=== PATIENT | female | born 1945 | race Caucasian/White ===

== ENCOUNTER 2021-09-20 16:20 | Inpatient (IN) ==
[2021-09-20 21:56] LABS: Basophils % 0.4 %; Eosinophils # 0.1 K/mcL (0.0-0.6); Eosinophils % 1.8 %; Hematocrit 36.3 % (35.3-44.9); Immature Granulocytes % 0.4 % (0-4); Lymphocytes # 0.8 K/mcL (0.6-4.6); Lymphocytes % 15.4 %; Mean Corpuscular HGB Conc 30.3 g/dL (31.6-35.5); Mean Corpuscular Hemoglobin 25.4 pg (28.0-33.3); Mean Corpuscular Volume 83.8 fL (83.0-100.0); Mean Platelet Volume 9.7 fL (9.4-12.4); Monocytes # 0.5 K/mcL (0.0-1.3); Monocytes % 10.3 %; Neutrophils # 3.7 K/mcL (1.6-8.9); Platelet Count 115 K/mcL (140-400); Red Blood Count 4.33 M/mcL (3.82-4.97); Segmented Neutrophils % 71.7 %; White Blood Count 5.1 K/mcL (4.3-11.1)
[2021-09-20 22:04] LABS: INR 1.1; Prothrombin Time 12.1 Seconds (9.4-12.1)
[2021-09-20 22:15] LABS: Alanine Aminotransferase < 3 Units/L (7-52); Albumin 3.4 g/dL (3.5-5.7); Albumin/Globulin Ratio 1.4 (1.1-2.2); Alkaline Phosphatase 94 Units/L (34-104); Aspartate Amino Transferase 10 Units/L (13-39); BUN/Creatinine Ratio 37 (6-26); Bilirubin,Total 0.5 mg/dL (0.3-1.0); Blood Urea Nitrogen 22 mg/dL (8-23); Calcium 8.4 mg/dL (8.6-10.3); Carbon Dioxide 25 mEq/L (23-29); Chloride 109 mEq/L (98-107); Globulin 2.4 g/dL (2.4-3.5); Glucose 95 mg/dL (70-105); Osmolality,Calculated 293 (280-300); Potassium 3.8 mEq/L (3.5-5.1); Sodium 140 mEq/L (136-145); Total Protein 5.8 g/dL (6.4-8.9); eGFR For African Americans > 60 (> 60); eGFR For Non-African Americans > 60 (> 60)
[2021-09-20] MEDS ORDERED: Perflutren Lipid Microsphere 1.3 ML in 0.9 % Sodium Chloride 8.7 ML IVP PRN (22:18)
[2021-09-20] MEDS ORDERED: tiZANidine 4 MG TABLET PO PRN (22:19)
[2021-09-20] MEDS ORDERED: *HR* LORazepam 2 MG/ML VIAL IVP PRN ×2 (22:20)
[2021-09-20] MEDS ORDERED: Ondansetron 4 MG/2 ML VIAL IVP PRN (22:24)
[2021-09-20] MEDS ORDERED: Naloxone 0.4 MG/ML INJ IVP PRN (22:24)
[2021-09-20] MEDS ORDERED: Acetaminophen 325 MG TABLET PO PRN (22:24)
[2021-09-20 22:50] LABS: Amylase 32 Units/L (29-103)
[2021-09-20 23:17] LABS: Lipase 10 Units/L (11-82)
[2021-09-21] MEDS ORDERED: clonazePAM 1 MG TABLET PO PRN (00:53)
[2021-09-21 07:02] LABS: Hematocrit 37.8 % (35.3-44.9); Hemoglobin 11.2 g/dL (11.5-15.4); Mean Corpuscular HGB Conc 29.6 g/dL (31.6-35.5); Mean Corpuscular Hemoglobin 24.7 pg (28.0-33.3); Mean Corpuscular Volume 83.3 fL (83.0-100.0); Mean Platelet Volume 10.3 fL (9.4-12.4); Platelet Count 119 K/mcL (140-400); Red Blood Count 4.54 M/mcL (3.82-4.97); Red Cell Distribution Width 16.9 % (11.5-14.5); White Blood Count 4.8 K/mcL (4.3-11.1)
[2021-09-21 07:27] LABS: BUN/Creatinine Ratio 35 (6-26); Blood Urea Nitrogen 19 mg/dL (8-23); Calcium 8.6 mg/dL (8.6-10.3); Carbon Dioxide 26 mEq/L (23-29); Chloride 108 mEq/L (98-107); Chol/HDL Ratio 2.2 (0-4.9); Cholesterol 94 mg/dL (< 200); Glucose 89 mg/dL (70-105); HDL Cholesterol 42 mg/dL (40-59); LDL Cholesterol,Calculated 28 mg/dL (< 100); Magnesium 1.8 mg/dL (1.6-2.6); Osmolality,Calculated 292 (280-300); Potassium 3.9 mEq/L (3.5-5.1); Sodium 140 mEq/L (136-145); Triglycerides 120 mg/dL (< 150); eGFR For African Americans > 60 (> 60); eGFR For Non-African Americans > 60 (> 60)
[2021-09-21 07:28] LABS: % Iron Saturation 8 % (15-50); Iron 39 mcg/dL (50-170); Transferrin 331 mg/dL (203-362)
[2021-09-21 07:49] LABS: Ferritin < 8 ng/mL (10-120)
[2021-09-21] MEDS: QUEtiapine Fumarate 25 MG TABLET PO SCH ×2 (08:50→20:42)
[2021-09-21] MEDS: *HR* OxyCODONE Immed Rel 5 MG TABLET PO PRN ×2 (08:51→17:34)
[2021-09-21] MEDS: Carbidopa/Levodopa 25/100 TABLET PO SCH ×4 (08:51→20:42)
[2021-09-21] MEDS: Vitamin B Complex/Vit C/Vit E 1 EACH TABLET PO SCH (08:51)
[2021-09-21 08:52] LABS: Folate 21.9 ng/mL (3.0-16.0)
[2021-09-21 12:24] LABS: Estimated Average Glucose 100 mg/dl; Hemoglobin A1C 5.1 %
[2021-09-21] MEDS ORDERED: Ringers Solution, Lactated 1,000 ML IVC SCH (15:30)
[2021-09-21] MEDS ORDERED: Gabapentin 300 MG CAPSULE PO SCH (21:00)
[2021-09-22 04:18] LABS: Bacteria,Urine Moderate per hpf (None-Few); Bilirubin,Urine Negative (Negative); Blood,Urine Large (Negative); Clarity,Urine Turbid (Clear); Color,Urine Yellow (Yellow); Glucose,Urine (UA) Normal (Normal); Ketones,Urine Trace mg/dL (Negative); Leukocyte Esterase,Urine Large (Negative); Mucus,Urine Few per lpf (None-Few); Nitrite,Urine Positive (Negative); Protein,Urine 50 mg/dL (Neg-Trace); RBC,Urine TNTC per hpf (0-3); Specific Gravity,Urine 1.025 (1.010-1.025); Squamous Epithelial Cell,Urine Few per hpf (None-Few); Urobilinogen,Urine Normal (Normal); WBC,Urine 15-30 per hpf (0-3)
[2021-09-22 05:43] LABS: Hematocrit 38.7 % (35.3-44.9); Hemoglobin 11.5 g/dL (11.5-15.4); Mean Corpuscular HGB Conc 29.7 g/dL (31.6-35.5); Mean Corpuscular Hemoglobin 24.8 pg (28.0-33.3); Mean Corpuscular Volume 83.4 fL (83.0-100.0); Mean Platelet Volume 10.3 fL (9.4-12.4); Red Blood Count 4.64 M/mcL (3.82-4.97); Red Cell Distribution Width 16.8 % (11.5-14.5); White Blood Count 3.9 K/mcL (4.3-11.1)
[2021-09-22 05:44] LABS: Platelet Count 91 K/mcL (140-400)
[2021-09-22 06:48] LABS: BUN/Creatinine Ratio 42 (6-26); Blood Urea Nitrogen 22 mg/dL (8-23); Calcium 7.5 mg/dL (8.6-10.3); Carbon Dioxide 24 mEq/L (23-29); Chloride 107 mEq/L (98-107); Glucose 88 mg/dL (70-105); Osmolality,Calculated 291 (280-300); Potassium 3.7 mEq/L (3.5-5.1); Sodium 139 mEq/L (136-145); eGFR For African Americans > 60 (> 60); eGFR For Non-African Americans > 60 (> 60)
[2021-09-22] MEDS: Carbidopa/Levodopa 25/100 TABLET PO SCH ×4 (07:54→20:09)
[2021-09-22] MEDS: QUEtiapine Fumarate 25 MG TABLET PO SCH ×2 (07:54→20:08)
[2021-09-22] MEDS: Vitamin B Complex/Vit C/Vit E 1 EACH TABLET PO SCH (07:54)
[2021-09-22] MEDS ORDERED: Povidone-Iodine 45 ML, Sodium Chloride IRRigation 1,000 ML IR ONE (08:15)
[2021-09-22] MEDS ORDERED: TOTAL JOINT MIXTURE (100ML) INTRAART ONE (08:15)
[2021-09-22] MEDS ORDERED: *HR* FentaNYL (PF) 100 MCG/2 ML VIAL IVP PRN (08:26)
[2021-09-22] MEDS ORDERED: *HR* HYDROmorphone PF 0.5 MG/0.5 ML SYRINGE IVP PRN ×2 (08:26→15:10)
[2021-09-22] MEDS ORDERED: Ondansetron 4 MG/2 ML VIAL ONE ×2 (10:37→12:54)
[2021-09-22] MEDS ORDERED: *HR* FentaNYL (PF) 100 MCG/2 ML VIAL ONE (10:37)
[2021-09-22] MEDS ORDERED: Lidocaine -MPF 2% 5 ML VIAL ONE ×2 (10:37→12:54)
[2021-09-22] MEDS ORDERED: *HR* Rocuronium Bromide 50 MG/5 ML VIAL ONE (10:37)
[2021-09-22] MEDS ORDERED: *HR* Succinylcholine 200 MG/10 ML VIAL IVP ONE (10:37)
[2021-09-22] MEDS ORDERED: *HR* Propofol 200 MG/20 ML VIAL IVP ONE ×2 (10:37→12:54)
[2021-09-22] MEDS ORDERED: Acetaminophen IV 1,000 MG/100 ML BAG IVPB PRN (11:00)
[2021-09-22] MEDS ORDERED: *HR* OxyCODONE/APAP 5/325 TABLET PO PRN (11:00)
[2021-09-22] MEDS ORDERED: *HR* Labetalol 20 MG/4 ML SYRINGE IVP PRN ×2 (11:00→13:51)
[2021-09-22] MEDS ORDERED: Tranexamic Acid 1,000 MG/10 ML VIAL ONE (12:30)
[2021-09-22] MEDS ORDERED: Perflutren Lipid Microsphere 1.3 ML in 0.9 % Sodium Chloride 8.7 ML IVP PRN (13:51)
[2021-09-22] MEDS ORDERED: tiZANidine 4 MG TABLET PO PRN (13:51)
[2021-09-22] MEDS ORDERED: *HR* LORazepam 2 MG/ML VIAL IVP PRN ×2 (13:51)
[2021-09-22] MEDS ORDERED: Ondansetron 4 MG/2 ML VIAL IVP PRN ×2 (13:51→15:10)
[2021-09-22] MEDS ORDERED: Naloxone 0.4 MG/ML INJ IVP PRN (13:51)
[2021-09-22] MEDS ORDERED: Haloperidol Lactate 5 MG/ML VIAL IVP ONE (13:55)
[2021-09-22] MEDS ORDERED: *HR* OxyCODONE Immed Rel 5 MG TABLET PO PRN (15:10)
[2021-09-22] MEDS: CeFAZolin 2 GM/120 ML BAG IVPB SCH ×2 (16:01→23:15)
[2021-09-22] MEDS: Gabapentin 300 MG CAPSULE PO SCH (20:08)
[2021-09-23] MEDS: *HR* OxyCODONE Immed Rel 5 MG TABLET PO PRN ×2 (02:32→21:19)
[2021-09-23 05:18] LABS: Basophils % 0.2 %; Eosinophils % 0.2 %; Red Cell Distribution Width 16.9 % (11.5-14.5)
[2021-09-23 05:20] LABS: Hematocrit 29.6 % (35.3-44.9); Hemoglobin 8.9 g/dL (11.5-15.4); Immature Granulocytes % 0.4 % (0-4); Lymphocytes # 0.8 K/mcL (0.6-4.6); Lymphocytes % 15.4 %; Mean Corpuscular HGB Conc 30.1 g/dL (31.6-35.5); Mean Corpuscular Hemoglobin 24.9 pg (28.0-33.3); Mean Corpuscular Volume 82.9 fL (83.0-100.0); Mean Platelet Volume 10.6 fL (9.4-12.4); Monocytes # 0.6 K/mcL (0.0-1.3); Monocytes % 11.8 %; Neutrophils # 3.7 K/mcL (1.6-8.9); Red Blood Count 3.57 M/mcL (3.82-4.97); White Blood Count 5.1 K/mcL (4.3-11.1)
[2021-09-23 05:23] LABS: Platelet Count 91 K/mcL (140-400)
[2021-09-23 05:30] LABS: BUN/Creatinine Ratio 42 (6-26); Blood Urea Nitrogen 19 mg/dL (8-23); Carbon Dioxide 27 mEq/L (23-29); Chloride 108 mEq/L (98-107); Glucose 101 mg/dL (70-105); Osmolality,Calculated 292 (280-300); Potassium 3.9 mEq/L (3.5-5.1); Sodium 140 mEq/L (136-145); eGFR For African Americans > 60 (> 60); eGFR For Non-African Americans > 60 (> 60)
[2021-09-23] MEDS: QUEtiapine Fumarate 25 MG TABLET PO SCH ×2 (08:12→20:13)
[2021-09-23] MEDS: Carbidopa/Levodopa 25/100 TABLET PO SCH ×4 (08:13→20:12)
[2021-09-23] MEDS: Vitamin B Complex/Vit C/Vit E 1 EACH TABLET PO SCH (08:13)
[2021-09-23] MEDS: Aspirin Enteric Coated 81 MG Tablet PO SCH (14:16)
[2021-09-23] MEDS ORDERED: Ringers Solution, Lactated 1,000 ML IVC SCH (16:15)
[2021-09-23] MEDS: cefTRIAXone 1,000 MG in 0.9 % Sodium Chloride 10 ML IVP SCH (18:03)
[2021-09-23] MEDS: Gabapentin 300 MG CAPSULE PO SCH (20:13)
[2021-09-24] MEDS: *HR* OxyCODONE Immed Rel 5 MG TABLET PO PRN (03:52)
[2021-09-24] MEDS: cefTRIAXone 1,000 MG in 0.9 % Sodium Chloride 10 ML IVP SCH (09:52)
[2021-09-24] MEDS: Carbidopa/Levodopa 25/100 TABLET PO SCH ×4 (09:52→20:32)
[2021-09-24] MEDS: QUEtiapine Fumarate 25 MG TABLET PO SCH ×2 (09:52→20:33)
[2021-09-24] MEDS: Aspirin Enteric Coated 81 MG Tablet PO SCH (09:52)
[2021-09-24] MEDS: Vitamin B Complex/Vit C/Vit E 1 EACH TABLET PO SCH (09:52)
[2021-09-24 10:03] LABS: Hemoglobin 8.4 g/dL (11.5-15.4); Mean Platelet Volume 10.4 fL (9.4-12.4)
[2021-09-24 10:05] LABS: Hematocrit 27.7 % (35.3-44.9); Immature Platelets 5.3 % (1.1-6.1); Mean Corpuscular HGB Conc 30.3 g/dL (31.6-35.5); Mean Corpuscular Volume 82.4 fL (83.0-100.0); Red Blood Count 3.36 M/mcL (3.82-4.97); Red Cell Distribution Width 16.9 % (11.5-14.5); White Blood Count 4.3 K/mcL (4.3-11.1)
[2021-09-24] MEDS: *HR* Metoprolol 5 MG/5 ML VIAL IVP PRN (17:16)
[2021-09-24] MEDS: Ringers Solution, Lactated 1,000 ML IVC SCH (19:16)
[2021-09-24] MEDS ORDERED: Ringers Solution, Lactated 250 ML IVC ONE (19:32)
[2021-09-24] MEDS: Gabapentin 300 MG CAPSULE PO SCH (20:33)
[2021-09-24] MEDS ORDERED: 0.9 % Sodium Chloride 500 ML IVC ONE ×2 (20:50→22:21)
[2021-09-24] MEDS: DilTIAZem 50 MG/50 ML IV.SOLN IVC SCH (21:03)
[2021-09-25] MEDS: *HR* Metoprolol 5 MG/5 ML VIAL IVP PRN (00:36)
[2021-09-25] MEDS: DilTIAZem 50 MG/50 ML IV.SOLN IVC SCH (03:37)
[2021-09-25 09:32] LABS: Basophils % 0.5 %; Eosinophils # 0.2 K/mcL (0.0-0.6); Hematocrit 28.9 % (35.3-44.9); Hemoglobin 8.7 g/dL (11.5-15.4); Immature Granulocytes % 0.3 % (0-4); Lymphocytes # 0.8 K/mcL (0.6-4.6); Lymphocytes % 20.5 %; Mean Corpuscular HGB Conc 30.1 g/dL (31.6-35.5); Mean Corpuscular Hemoglobin 25.7 pg (28.0-33.3); Mean Corpuscular Volume 85.5 fL (83.0-100.0); Mean Platelet Volume 10.3 fL (9.4-12.4); Monocytes # 0.4 K/mcL (0.0-1.3); Monocytes % 9.4 %; Neutrophils # 2.4 K/mcL (1.6-8.9); Platelet Count 103 K/mcL (140-400); Red Blood Count 3.38 M/mcL (3.82-4.97); Red Cell Distribution Width 17.2 % (11.5-14.5); Segmented Neutrophils % 65.3 %; White Blood Count 3.7 K/mcL (4.3-11.1)
[2021-09-25] MEDS: Aspirin Enteric Coated 81 MG Tablet PO SCH (11:05)
[2021-09-25] MEDS: Vitamin B Complex/Vit C/Vit E 1 EACH TABLET PO SCH (11:06)
[2021-09-25] MEDS: QUEtiapine Fumarate 25 MG TABLET PO SCH ×2 (11:06→20:00)
[2021-09-25] MEDS: Carbidopa/Levodopa 25/100 TABLET PO SCH ×4 (11:06→20:00)
[2021-09-25] MEDS: cefTRIAXone 1,000 MG in 0.9 % Sodium Chloride 10 ML IVP SCH (11:06)
[2021-09-25] MEDS: Ringers Solution, Lactated 1,000 ML IVC SCH (12:00)
[2021-09-25] MEDS: clonazePAM 1 MG TABLET PO PRN (18:21)
[2021-09-25] MEDS: Gabapentin 300 MG CAPSULE PO SCH (20:01)
[2021-09-26] MEDS: Ringers Solution, Lactated 1,000 ML IVC SCH ×2 (01:30→16:06)
[2021-09-26] MEDS: cefTRIAXone 1,000 MG in 0.9 % Sodium Chloride 10 ML IVP SCH (10:14)
[2021-09-26] MEDS: Vitamin B Complex/Vit C/Vit E 1 EACH TABLET PO SCH (10:15)
[2021-09-26] MEDS: Aspirin Enteric Coated 81 MG Tablet PO SCH (10:15)
[2021-09-26] MEDS: Carbidopa/Levodopa 25/100 TABLET PO SCH ×4 (10:15→21:26)
[2021-09-26] MEDS: QUEtiapine Fumarate 25 MG TABLET PO SCH ×2 (10:15→21:26)
[2021-09-26 12:38] LABS: Alanine Aminotransferase < 3 Units/L (7-52); Albumin 2.9 g/dL (3.5-5.7); Albumin/Globulin Ratio 1.3 (1.1-2.2); Alkaline Phosphatase 65 Units/L (34-104); Aspartate Amino Transferase 12 Units/L (13-39); BUN/Creatinine Ratio 31 (6-26); Bilirubin,Total 0.6 mg/dL (0.3-1.0); Blood Urea Nitrogen 12 mg/dL (8-23); Calcium 8.1 mg/dL (8.6-10.3); Carbon Dioxide 25 mEq/L (23-29); Chloride 111 mEq/L (98-107); Globulin 2.3 g/dL (2.4-3.5); Glucose 84 mg/dL (70-105); Osmolality,Calculated 293 (280-300); Potassium 3.7 mEq/L (3.5-5.1); Sodium 142 mEq/L (136-145); Total Protein 5.2 g/dL (6.4-8.9); eGFR For African Americans > 60 (> 60); eGFR For Non-African Americans > 60 (> 60)
[2021-09-26 13:51] LABS: Basophils % 0.5 %; Eosinophils # 0.2 K/mcL (0.0-0.6); Eosinophils % 4.9 %; Hematocrit 29.7 % (35.3-44.9); Hemoglobin 8.8 g/dL (11.5-15.4); Immature Platelets 4.5 % (1.1-6.1); Lymphocytes # 0.6 K/mcL (0.6-4.6); Lymphocytes % 15.1 %; Mean Corpuscular HGB Conc 29.6 g/dL (31.6-35.5); Mean Corpuscular Hemoglobin 25.1 pg (28.0-33.3); Mean Corpuscular Volume 84.6 fL (83.0-100.0); Mean Platelet Volume 10.4 fL (9.4-12.4); Monocytes # 0.3 K/mcL (0.0-1.3); Monocytes % 7.4 %; Neutrophils # 2.8 K/mcL (1.6-8.9); Platelet Count 119 K/mcL (140-400); Red Blood Count 3.51 M/mcL (3.82-4.97); Red Cell Distribution Width 17.3 % (11.5-14.5); Segmented Neutrophils % 71.1 %; White Blood Count 3.9 K/mcL (4.3-11.1)
[2021-09-26] MEDS: clonazePAM 1 MG TABLET PO PRN (16:11)
[2021-09-26] MEDS: Apixaban 5 MG TABLET PO SCH (21:25)
[2021-09-26] MEDS: Gabapentin 300 MG CAPSULE PO SCH (21:26)
[2021-09-27] MEDS: *HR* OxyCODONE Immed Rel 5 MG TABLET PO PRN ×2 (03:40→11:36)
[2021-09-27] MEDS: Ringers Solution, Lactated 1,000 ML IVC SCH ×2 (03:50→11:33)
[2021-09-27] MEDS: DilTIAZem 50 MG/50 ML IV.SOLN IVC SCH (03:50)
[2021-09-27] MEDS: Carbidopa/Levodopa 25/100 TABLET PO SCH ×2 (07:55→15:07)
[2021-09-27] MEDS: clonazePAM 1 MG TABLET PO PRN ×2 (07:55→15:08)
[2021-09-27] MEDS: Aspirin Enteric Coated 81 MG Tablet PO SCH (07:56)
[2021-09-27] MEDS: Apixaban 5 MG TABLET PO SCH (07:56)
[2021-09-27] MEDS: Vitamin B Complex/Vit C/Vit E 1 EACH TABLET PO SCH (07:56)
[2021-09-27] MEDS: QUEtiapine Fumarate 25 MG TABLET PO SCH (07:56)
[2021-09-27] MEDS: cefTRIAXone 1,000 MG in 0.9 % Sodium Chloride 10 ML IVP SCH (07:57)
[2021-09-27 11:14] VITALS: O2SAT 94
[2021-09-27 15:13] VITALS: BP 131/65; PULSE 80; TEMP 98.2
[2021-09-27 15:15] LABS: Adenovirus Not Detected (Not Detect); Bordetella Pertussis Not Detected (Not Detect); Chlamydophila pneumoniae Not Detected (Not Detect); Coronavirus 229E Not Detected (Not Detect); Coronavirus HKU1 Not Detected (Not Detect); Coronavirus NL63 Not Detected (Not Detect); Coronavirus OC43 Not Detected (Not Detect); Human Metapneumovirus Not Detected (Not Detect); Human Rhinovirus/Enterovirus Not Detected (Not Detect); Influenza A Subtype 2009 H1 Not Detected (Not Detect); Influenza B Not Detected (Not Detect); Mycoplasma pneumoniae Not Detected (Not Detect); Parainfluenza Virus 1 Not Detected (Not Detect); Parainfluenza Virus 2 Not Detected (Not Detect); Parainfluenza Virus 3 Not Detected (Not Detect); Parainfluenza Virus 4 Not Detected (Not Detect); Respiratory Syncytial Virus Not Detected (Not Detect); SARS-CoV-2 Not Detected (Not Detect)
== END 2021-09-27 16:58 | DRG 480 ==
LOC: 4WAOSI → SUATTDRO 22:24 → 2NNU 09-25 00:03 → 3ANU 09-26 08:43
PROVIDERS: ADMIT General Practice; ATTEND Internal Medicine